=== PATIENT | male | born 1955 | race Caucasian/White ===

== ENCOUNTER 2017-09-09 08:06 | Outpatient (CLI) | payer MEDICARE ==
[~2017-09-09] VITALS: Ht 170.2 cm; Wt 110.0 kg
--- NOTE | ~2017-09-09 | HEMODYNAMI ---
PATIENT:VICKY SPANGLER MEDICAL RECORD: [id number] : 53 LOCATION:D.CAT ADMISSION DATE: 09/09/17 Generatedon:09/09/201712:49 Patient name: VICKY SPANGLER Patient #: [id number] SSN: : 1955 Date of study: 09/09/2017 Page: Of Hemodynamic Procedure Report Patient Data Patient Demographics Procedure consent was obtained First Name: VICKY Gender: Male Last Name: ANÍBAL : 1955 Middle Initial: D Age: 61 year(s) Patient #: [id number] Race: Additional ID: [id number] Contact details [address]: [address] [place] [address] State: [place] City: [place] Zip code: [address] Past Medical History Allergies Allergen Reaction Date Comments Reported Other allergy 09/05/2017 see chart Other allergy 09/09/2017 statins Admission Admission Data Admission Date: 09/09/2017 Admission Time: 8:06 Lab Results Lab Result Date: 09/09/2017 Lab Result Time: 0:00 Biochemistry Name Units Result Min Max BUN mg/dl 13 --(--*-)-- 7 18 Creatinine mg/dl 1.1 --(--*-)-- 0.6 1.3 CBC Name Units Result Min Max Hemoglobin g/dl 16.7 --(---*)-- 13.5 17.5 Procedure Procedure Types Cath Procedure Diagnostic Procedure FFR/IVUS Intra-Coronary IVUS Initial PCI Procedure Coronary Stent Coronary Stent Initial Miscellaneous Procedures Moderate Sedation up to 30 minutes Procedure Description Procedure Date Procedure Date: 09/09/2017 Procedure Start Time: 12:29 Procedure End Time: 12:45 Procedure Staff Name Function Kishan Hathaway MD Performing Physician Tanika Chaparro RT Monitor Yen Wiley RT Scrub Mookie Robertson RN Nurse Elena Hong RN Nurse Procedure Data Cath Procedure Fluoroscopy Diagnostic fluoroscopy Total fluoroscopy Time: 4.8 time: 4.8 min min Diagnostic fluoroscopy Total fluoroscopy dose: 680 dose: 680 mGy mGy Contrast Material Contrast Material Type Amount (ml) Isovue 300 46 Entry Location Entry Primary Successful Side Size Upsize Upsize Entry Closure Succes sful Closure Location (Fr) 1 (Fr) 2 (Fr) Remarks Device Remarks Femoral Right 6 Fr Exoseal artery Short Estimated blood loss: 5 ml Procedure Complications No complications Procedure Medications Medication Administration Route Dosage 0.9% NaCl I.V. ml/hr Lidocaine 2% added to field 20 Heparin Flush Bag added to field 2 bags (1000units/500ml NS) Oxygen NC 2 l/min Fentanyl I.V. 100 mcg Versed I.V. 2 mg Versed I.V. 1 mg Fentanyl I.V. 50 mcg Fentanyl I.V. 50 mcg Versed I.V. 1 mg Heparin Bolus I.V. 4000 units Versed I.V. 0.5 mg Fentanyl I.V. 25 mcg Hemodynamics Rest HGB: 16.7 (g/dl) Heart Rate: 66 (bpm) Snapshots Pre Cath Intra NCS Post Cath Vital Signs Time Heart Resp SPO2 NIBP (mmHg) Rhythm Pain Sedation Rate (ipm) (%) Status Level (bpm) 11:30:54 68 22 95 133/88(107) NSR 0 (11) 10(A) , No pain 11:35:04 64 22 98 125/91(103) NSR 0 (11) 10(A) , No pain 11:39:12 66 20 98 120/89(106) NSR 0 (11) 10(A) , No pain 11:43:22 63 20 98 117/80(96) NSR 0 (11) 10(A) , No pain 11:47:27 64 15 98 112/86(102) NSR 0 (11) 10(A) , No pain 11:51:35 66 14 97 120/79(101) NSR 0 (11) 10(A) , No pain 11:55:47 66 14 96 110/70(83) NSR 0 (11) 10(A) , No pain 11:59:57 68 14 96 108/66(82) NSR 0 (11) 10(A) , No pain 12:04:07 69 14 96 109/64(81) NSR 0 (11) 10(A) , No pain 12:08:15 71 15 96 110/66(83) NSR 0 (11) 10(A) , No pain 12:12:23 69 16 96 94/66(83) NSR 0 (11) 10(A) , No pain 12:16:22 71 19 95 111/97(107) NSR 0 (11) 10(A) , No pain 12:20:34 73 14 94 101/63(80) NSR 0 (11) 10(A) , No pain 12:24:42 72 14 94 98/61(75) NSR 0 (11) 10(A) , No pain 12:28:50 75 14 95 104/61(84) NSR 0 (11) 9(A) , No pain 12:32:54 77 15 95 118/72(89) NSR 0 (11) 9(A) , No pain 12:37:02 74 18 91 79/50(68) NSR 0 (11) 9(A) , No pain 12:41:24 71 18 72 89/57(81) NSR 0 (11) 10(A) , No pain 12:45:32 72 14 84 96/52(82) NSR 0 (11) 10(A) , No pain Medications Time Medication Route Dose Verified Delivered Reason Notes Effectiveness by by 11:41:18 0.9% NaCl I.V. ml/hr Kishan Parker used for Rivas Hong RN procedure 11:41:30 Lidocaine 2% added 20ml Kishan Holley for local to vial Rivas Hathaway MD anesthetic field 11:41:39 Heparin Flush added 2 Kishan Holley used for Bag to bags Rivas Hathaway MD procedure (1000units/500ml field NS) 11:41:55 Oxygen NC 2 Kishan Elena Per physician l/min Rivas Hong RN 12:22:43 Fentanyl I.V. 100 Kishan Elena for sedation mcg Rivas Hong RN 12:22:52 Versed I.V. 2 mg Kishan Elena for sedation Rivas Hong RN 12:25:55 Versed I.V. 1 mg Kishan Elena for sedation Rivas Hong RN 12:26:03 Fentanyl I.V. 50 Kishan Elena for sedation mcg Rivas Hong RN 12:31:43 Fentanyl I.V. 50 Kishan Mathisfany for sedation mcg Rivas Hong RN 12:31:49 Versed I.V. 1 mg Kishan Parker for sedation Rivas Hong RN 12:33:22 Heparin Bolus I.V. 4000 Kishan Parker for units Rivas Hong RN anticoagulation 12:38:20 Versed I.V. 0.5 Kishan Parker for sedation mg Rivas Hong RN 12:38:25 Fentanyl I.V. 25 Kishan Parker for sedation mcg Rivas Hong RN Procedure Log Time Note 11::30 Diagnostic Cath Status : Elective 11:20:55 Yen Wiley RT(R) sent for patient. Start room use. 11:20:56 Time tracking: Regular hours 11:21:00 Plan of Care:Hemodynamics will remain stable., Cardiac rhythm will remain stable., Comfort level will be maintained., Respiratory function will remain adequate., Patient/ family verbilizes understanding of procedure., Procedure tolerated without complication., Recovers from procedure without complications.. 11:21:53 Patient received from Pre/Post Procedure Room to CCL 2 Alert and oriented. Tansferred to table in Supine position. 11:21:54 Warm blankets applied, and elizabeth hugger turned on for patient comfort. 11:21:54 Correct patient and procedure confirmed by team. 11::56 Signed procedure consent form obtained from patient. 11:21:56 ECG and BP/O2 sat monitors applied to patient. 11:29:53 Vital chart was started 11:29:55 Baseline sample Acquired. 11:29:58 Rhythm: sinus rhythm 11:30:00 Full Disclosure recording started 11:30:04 H&P Date Dictated: 09/09/2017 Within 30 days and on chart., H&P Addendum completed by physician on day of procedure. (MUST COMPLETE FOR ALL OUTPATIENTS). 11:30:12 Pre-procedure instructions explained to patient. 11:30:12 Pre-op teaching completed and patient verbalized understanding. 11:30:13 Family in waiting room. 11:30:15 Patient NPO since Midnight. 11:30:36 Patient allergic to Other allergystatins 11:30:40 Is the patient allergic to Iodine/contrast media? No. 11:30:41 Was the patient premedicated? No 11:30:42 Is patient on blood thinner?Yes 11:30:45 ACC The patient was administered the following blood thiners within the last 24 hours: ACCPlavix 11:31:12 Patient diabetic? No. 11:31:14 Previous problem with sedation/anesthesia? No ? 11:31:16 Snore? Yes 11:31:17 Sleep apnea? No 11:31:18 Deviated septum? No 11:31:19 Opens mouth fully? Yes 11:31:20 Sticks out tongue? Yes 11:31:27 Airway obstruction? No ? 11:31:33 Dentures? No ? 11:31:40 Pre procedure: right dorsailis pedis pulse 1+ Palpable, but thready & weak; easily obliterated 11:31:42 Pre procedure: left dorsailis pedis pulse 1+ Palpable, but thready & weak; easily obliterated 11:31:44 Patient pain scale 0/10 ?. 11:31:49 IV patent on arrival in right forearm with 0.9% NaCl at [facility]. 11:34:02 Lab Result : BUN 13 mg/dl 11:34:02 Lab Result : Creatinine 1.1 mg/dl 11:34:02 Lab Result : Hemoglobin 16.7 g/dl 11:34:07 Lab results completed and on chart. 11:34:13 Right groin area was prepped with chlora-prep and draped in sterile fashion 11:34:14 Alarms reviewed by R. N. 11:34:14 Sharps counted by scrub and verified by R.N. 11:34:58 Thayer Wyanet Eagleye IVUS Catheter opened to sterile field. 11:41:18 0.9% NaCl ml/hr I.V. was administered by Elena Hong RN; used for procedure; 11:41:30 Lidocaine 2% 20ml vial added to field was administered by Kishan Hathaway MD; for local anesthetic; 11:41:39 Heparin Flush Bag (1000units/500ml NS) 2 bags added to field was administered by Kishan Hathaway MD; used for procedure; 11:41:55 Oxygen 2 l/min NC was administered by Elena Hong RN; Per physician; 12:17:16 Physician arrived 12:17:17 --------ALL STOP TIME OUT------ 12:17:17 Final Timeout: patient, procedure, and site verified with staff and physician. All members of the team are in agreement. 12:17:19 Right groin site verified by team. 12:17:22 Physical assessment completed. ASA score P 2 - A patient with mild systemic disease as per Kishan Hathaway MD. 12:17:25 Sedation plan: IV Moderate Sedation Medication:Versed, Fentanyl 12:22:43 Fentanyl 100 mcg I.V. was administered by Elena Hong RN; for sedation; 12::51 Use device set TAUTH PCI 12::52 Versed 2 mg I.V. was administered by Elena Hong RN; for sedation; 12::55 INFLATOR Merit BasixCompak Inflation Kit ([id number]) opened to sterile field. 12::58 Terumo 6Fr [place] Sheath opened to sterile field. 12:23:31 Use device set Acist 12:23:34 ACIST Manifold (19760) opened to sterile field. 12:23:34 ACIST Hand Control (48208) opened to sterile field. 12:23:37 ACIST Syringe (63720) opened to sterile field. 12::55 Versed 1 mg I.V. was administered by Elena Hong RN; for sedation; 12:26:03 Fentanyl 50 mcg I.V. was administered by Elena Hong RN; for sedation; 12:28:50 GUIDE 6FR AR 2.0 SH catheter ([id number]) opened to sterile field. 12:29:07 Procedure started. 12:29:12 Local anesthetic to right femoral artery with Lidocaine 2% by Kishan Hathaway MD.INITIAL ACCESS ONLY 12:30:57 A 6 Fr Short sheath was inserted into the Right Femoral artery 12::43 Fentanyl 50 mcg I.V. was administered by Elena Hong RN; for sedation; 12:31:49 Versed 1 mg I.V. was administered by Elena Hong RN; for sedation; 12:32:06 6 Fr ar 2 sh guide catheter was inserted over the wire 12:32:59 RCA angiography performed. 12:33:01 Injector settings: Ml/sec: 3, Volume: 6, 12:33:22 Heparin Bolus 4000 units I.V. was administered by Elena Hong RN; for anticoagulation; 12:33:30 Villasenor Whisper J 300cm 0.014 guide wire opened to sterile field. 12:34:44 whisper wire advanced. 12:34:46 Wire advanced across lesion. 12:35:36 IVUS catheter advanced over wire. 12:38:20 Versed 0.5 mg I.V. was administered by Elena Hong RN; for sedation; 12:38:25 Fentanyl 25 mcg I.V. was administered by Elena Hong RN; for sedation; 12:38:37 IVUS pass to RCA lesion performed. 12:38:38 IVUS catheter removed over wire. 12:39:27 Inflation Number: 1 A GEE OTW 3.5 x 18 stent ([id number]) was prepped and advanced across the Prox RCA. The stent was deployed at 17 SHIRA for 0:10 (min:sec). 12:40:19 Inflation number: 1 The stent balloon was then re-inflated across the Mid RCA to 17 SHIRA for 0:10 (min:sec). 12:40:54 Inflation number: 2 The stent balloon was then re-inflated across the Mid RCA to 13 SHIRA for 0:10 (min:sec). 12:41:06 Inflation number: 3 The stent balloon was then re-inflated across the Mid RCA to 13 SHIRA for 0:10 (min:sec). 12:41:20 Stent catheter was removed intact over wire. 12:41:21 Wire removed. 12:41:21 Guide catheter removed. 12:42:08 EXOSEAL 6Fr (EX600) opened to sterile field. 12:42:20 Sheath removed intact; hemostasis achieved with Exoseal to the Right Femoral artery. 12:42:23 Procedure ended.(Physican Out) 12:43:25 Non rebreather put on patient due to low oxygen level 12:43:41 Fluoroscopy time 04.80 minutes. 12:43:57 Flurop Dose total: 680 12:43:57 Fluoroscopy dose: 680 mGy 12:44:00 Contrast amount:Isovue 300 46ml. 12:44:02 Sharps counted by scrub and verified by R.N. 12:44:04 Insertion/operative site no bleeding no hematoma. 12:44:06 Post-op/insertion site Right Femoral artery dressed using a 4 x 4 and Tegaderm. 12:44:08 Post right femoral artery:stable 12:44:10 Post Procedure Pulses reassessed and unchanged 12:44:13 Post procedure rhythm: unchanged. 12:44:15 Estimated blood loss: 5 ml 12:44:17 Post procedure instruction explained to patient.Patient verbalizes understanding. 12:44:17 Patient needs reinforcement of post procedure teaching. 12:44:37 Procedure type changed to Cath procedure, Diagnostic procedure, FFR/IVUS, Intra-Coronary IVUS Initial, PCI procedure, Coronary Stent, Coronary Stent Initial, Miscellaneous Procedures, Moderate Sedation up to 30 minutes 12:44:40 Procedure and supply charges have been captured, reviewed, submitted and are correct. 12:44:44 Procedure Complication : No complications 12:44:46 Vital chart was stopped 12:44:47 See physician's report for complete and final results. 12:45:10 Report given to Pre/Post Procedure Room. 12:45:12 Patient transfered to Pre/Post Procedure Room with Stretcher. 12:45:19 Procedure ended. 12:45:19 Full Disclosure recording stopped 12:45:30 ACC-PCI Only Patient was given prescriptions, or instructed by Kishan Hathaway MD to start/continue the following medications upon discharge: Plavix 12:45:46 End room use (Document Last) Intervention Summary Intervention Notes Time ActionType Lesion and Equipment Action# Pressure Duration Attributes Used 12:39:27 Place stent Prox RCA GEE OTW 3.5 1 17 00:10 x 18 stent ([id number]) 12:40:19 Reinflate Mid RCA GEE OTW 3.5 1 17 00:10 stent x 18 stent balloon ([id number]) 12:40:54 Reinflate Mid RCA GEE OTW 3.5 2 13 00:10 stent x 18 stent balloon ([id number]) 12:41:06 Reinflate Mid RCA GEE OTW 3.5 3 13 00:10 stent x 18 stent balloon ([id number]) Device Usage Item Name Manufacture Quantity Catalog Hospital Part Current Mini mal Lot# / Number Charge Number Stock Stock Serial# Code Ronny Skinner [id number] [id number] 360240 8 [place]yanet Eagleye IVUS Catheter INFLATOR [employer]ckit [employer] 1 [id number] 651357 772481 15 [employer]it [employer] [facility] BasixCompak Inflation Kit (RS7451) Terumo 6Fr Terumo 1 [id number] 787100 564600 881090 40 [place] Sheath ACIST Acist 1 34047 198580 303820 283270 5 Manifold Medical (92436) Systems Inc ACIST Hand Acist 1 66971 938787 850928 473568 5 Control Medical (42720) Systems Inc ACIST Syringe Acist 1 32622 225160 335639 466873 20 (53702) Medical Systems Inc GUIDE 6FR AR Medtronic 1 [id number] 415319 83523 568375 1 2.0 SH catheter ([id number]) Villasenor Villasenor 1 [id number] 435803 312650 982573 5 Whisper J Vascular 300cm 0.014 guide wire GEE OTW 3.5 Medtronic 1 [id number] 997842 9109488 649151 5 [id number] x 18 stent ([id number]) EXOSEAL 6Fr Cardinal 1 EX600 466638 594500 290071 10 (EX600) Health Signature Audit Crete Stage Time Signature Unsigned Intra-Procedure 09/09/2017 Tanika Chaparro 12:49:20 PM RT(R) Signatures Monitor : Tanika Chaparro RT Signature : Date : Time : [facility] [address] [place] [address]
[~2017-09-09 08:06] MED LIST: BAYER CHEWABLE81 MG PO; COZAAR50 MG PO; CYMBALTA60 MG PO; FLOMAX0.4 MG PO; LEVOXYL75 MCG PO; LEXAPRO10 MG PO; METOPROLOL TART50 MG PO; PLAVIX75 MG PO; RANEXA500 MG PO
[2017-09-09 08:40] VITALS: BP 129/67; Ht 170.2 cm; Wt 110.0 kg
[2017-09-09 08:53] LABS: HEMATOCRIT 46.5 % (42.0-54.0); HEMOGLOBIN 16.7 g/dL (13.5-17.5); LYMPHOCYTES 34.1 % (15-50); MCH 31.6 pg (26.0-34.0); MCHC 35.9 g/dL (31.0-37.0); MCV 87.9 fL (80.0-100.0); MEAN PLATELET VOLUME 10.2 fL (7.4-10.4); NEUTROPHILS 57.7 % (40-80); PLATELET COUNT 249 10x3/uL (130-400); RBC 5.29 10x6/uL (4.20-6.10); RDW 12.2 % (11.5-14.5); WBC 6.7 10x3/uL (4.8-10.8)
[2017-09-09 08:59] LABS: CALCIUM 9.3 mg/dL (8.5-10.1); CARBON DIOXIDE 26.1 mmol/L (21.0-32.0); CREATININE - SERUM 1.1 mg/dL (0.6-1.3); POTASSIUM - SERUM 4.1 mmol/L (3.5-5.1)
--- NOTE | 2017-09-20 12:14 | HP ---
PATIENT: VICKY CARNES MEDICAL RECORD: [id number] ACCOUNT: [id number] LOCATION:ISABEL : 53 ADMISSION DATE: 09/09/17 HISTORY AND PHYSICAL EXAMINATION ADMITTING DIAGNOSES: 1. Angina. 2. Coronary artery disease. 3. Percutaneous transluminal coronary angioplasty stent to left anterior descending with concomitant disease to right coronary artery. 4. Hypertension. 5. Hyperlipidemia. HISTORY OF PRESENT ILLNESS: Mr. Carnes presents with anginal symptomatology, found to have 2-vessel coronary artery disease of the RCA and LAD, underwent successful PTCA stent of the LAD. He is now brought back for PTCA stent of the RCA. PHYSICAL EXAMINATION: GENERAL APPEARANCE: Well-nourished, well-developed, appears stated age. Level of distress, comfortable. PSYCHIATRIC: Mental status, alert, normal affect. Orientation, oriented to time, place and person. EYES: Lids and conjunctiva, noninjected. No discharge, no pallor. ENT: Lips, teeth, gums, normal dentition. Oropharynx, no cyanosis, no pallor. NECK: Carotid arteries, bilateral normal upstroke, no bruits, no thrills. JUGULAR VEINS: No jugular venous pressure or distention. CERVICAL LYMPH NODES: Nontender, nonenlarged. THYROID: Not enlarged. Nontender. No nodules. LUNGS: Respiratory effort, unlabored. CHEST: Normal curvature. No thoracic deformity. No chest wall tenderness. Percussion, resonant. Auscultation, clear. No wheezes, no rales, no rhonchi. CARDIOVASCULAR: Precordial exam, nondisplaced. No heaves or pericardial thrills. Rate and rhythm, regular. Heart sounds, normal S1, normal S2. No S3, no gallop, no rub. Systolic murmur, not heard. Diastolic murmur, not heard. EXTREMITIES: No cyanosis, no edema. Peripheral pulses, full and equal in all extremities, except as noted. No bruits appreciated. ABDOMEN: Soft, nondistended. Normal aorta. No bruit. Nontender. No masses. Liver, nontender, no hepatomegaly. Spleen, nontender, no splenomegaly. MUSCULOSKELETAL: No joint tenderness. No joint swelling. No erythema. NEUROLOGICAL: Normal gait, normal strength, normal tone. SKIN: Warm and dry. REVIEW OF SYSTEMS: The patient reports easy bruising but reports no swollen glands. The patient reports no fever, no night sweats, no significant weight gain, no significant weight loss. No significant exercise tolerance. The patient reports no dry eyes, no irritation, no vision change. Patient reports no difficulty hearing and no ear pain. Patient reports no frequent nose bleeds or nose and sinus problems. Patient reports on arm pain on exertion. No shortness of breath while lying down. No history of heart murmur. Patient reports no cough, no wheezing or coughing up blood. Patient reports no abdominal pain, no vomiting. Normal appetite. No diarrhea and not vomiting blood. No nausea and no constipation. Patient reports no incontinence. No difficulty urinating. No hematuria. No increased frequency. Patient reports no muscle aches. No weakness, no arthralgias, no back pain. No swelling of the HISTORY AND PHYSICAL [id number] VICKY CARNES extremities. Patient reports no abnormal mole, no jaundice, no rashes. Reports no loss of consciousness. No weakness and no numbness. No seizures, dizziness, or headaches. The patient reports no depression, no sleep disturbance, feeling safe in a relationship and no alcohol abuse. Patient reports on fatigue. Reports no runny nose or sinus pressure. No itching, no hives, and no frequent sneezing. OVERALL IMPRESSION: Anginal symptomatology with disease of the right coronary artery. We will proceed with percutaneous transluminal coronary angioplasty stent of the right coronary artery. TRANSINT:[id number] Voice Confirmation ID: [id number] DOCUMENT ID: [id number] REZA COVINGTON MD at 1214 CC: [id number] DICTATION DATE: 09/09/17 1225 AUTOMOBILE APPRAISER: 09/09/17 1240 DEP CLI 09/09/17 [id number] [place] [address]
--- NOTE | 2017-09-20 12:14 | OP ---
PATIENT NAME: VICKY SPANGLER MEDICAL RECORD: [id number] :53 LOCATION:D.CAT ADMISSION DATE: SURGEON: REZA COVINGTON MD DATE OF OPERATION: 09/09/2017 PROCEDURES: 1. PTCA stent to RCA. 2. Intravascular ultrasound to RCA. 3. Selective coronary angiography. INDICATION: Angina and coronary artery disease. PROCEDURE IN DETAIL: After informed consent was obtained and after detailed explanation of risks, benefits as well as alternative therapies, the patient elected to proceed with angiogram and angioplasty. The right femoral area was prepped and draped in normal sterile fashion. Right femoral artery was cannulated via modified Seldinger technique with placement of 6-Estonian sheath. All catheters exchanged through this sheath. FINDINGS: The right coronary artery has greater than 80% stenosis confirmed by intravascular ultrasound proximally. This was addressed with a 3.5 x 18 mm Shaquille. Result was 0% residual stenosis. OVERALL IMPRESSION: Successful percutaneous transluminal coronary angioplasty stent of the right coronary artery going from 80+ percent initial stenosis to 0% residual stenosis. TRANSINT:[id number] Voice Confirmation ID: [id number] DOCUMENT ID: [id number] REZA COVINGTON MD at 1214 CC: [id number] DICTATION DATE: 09/09/17 1246 MOLDER AUTOMOBILE CARPETS: 09/09/17 1256 DEP CLI 09/09/[address] [address]
== END 2017-09-09 17:00 | disposition home or self-care (01) ==
LOC: D.CATH 08:06
PROVIDERS: Internal Medicine Interventional Cardiology
DX: I25.119 Atherosclerotic heart disease of native coronary artery with unspecified angina pectoris (principal); Z95.5 Presence of coronary angioplasty implant and graft; I10 Essential (primary) hypertension; E78.5 Hyperlipidemia, unspecified; Z01.812 Encounter for preprocedural laboratory examination
CPT/HCPCS: 92978; C9600